=== PATIENT | female | born 1985 | race Caucasian/White ===

== ENCOUNTER → 2016-06-14 | Outpatient (CLI) | payer OTHER ==
[~2016-06-14] MED LIST: FLNCV PO
== END | disposition home or self-care (01) ==
LOC: C.PAPS 12:04
PROVIDERS: ATTEND Obstetrics & Gynecology
DX: Z12.4 Encounter for screening for malignant neoplasm of cervix (principal)

== ENCOUNTER → 2016-08-15 | Outpatient (CLI) | payer OTHER ==
--- NOTE | 2016-08-15 10:35 | DIAGNOSTIC IMAGING REPORT ---
ABDOMINAL ULTRASOUND, RIGHT UPPER QUADRANT HISTORY: RUQ EPIGASTRIC PAIN. COMPARISON: None. FINDINGS: Pancreas: The pancreas demonstrates a normal echotexture. Liver: Unremarkable. Gallbladder: No gallbladder wall thickening. No gallstones. CBD: 4 mm. Right kidney: No hydronephrosis. IMPRESSION: No significant abnormality identified within the right upper quadrant. Electronically signed by: Huy Rivas M.D. 08/15/2016 10:33 AM Dictated Date/Time: 08/15/2016 10:32 AM
--- NOTE | 2016-08-16 12:35 | CODING QUERY NO DIAGNOSIS ---
TREATMENT RENDERED WITHOUT A DIAGNOSIS To promote full compliance with coding requirements relating to patient care, physician participation is requested in all cases of roller mill tender uncertainty. Please assist us with providing a diagnosis/symptom for the test(s) below: A diagnosis/symptom was not documented on your Order. A valid diagnosis/symptom is required to bill all insurances. Please remember that we are unable to code a diagnosis of rule out, probable, possible, questionable, or suspected. Tests that require a diagnosis: DOS: 08/15/16 * RUQ ABDOMINAL ULTRASOUND DIAGNOSIS: Provider Signature: Date: Thank you [facility] Information Management Once completed, please kindly fax back to [phone] For questions please call [phone]
== END | disposition home or self-care (01) ==
LOC: C.ULTR 09:55
PROVIDERS: ATTEND Internal Medicine
DX: R10.11 Right upper quadrant pain (principal)

== ENCOUNTER 2023-07-15 07:23 | Inpatient (IN) ==
[2023-07-15] MEDS ORDERED: LIDOCAINE 1% LOCAL 20 ML VIAL INFIL PRN (08:28)
[2023-07-15] MEDS ORDERED: OXYTOCIN 30 UNITS/NSS 30 UNITS/500 ML BAG IV PRN ×2 (08:28→17:17)
[2023-07-15 08:55] LABS: Hematocrit (blood only) 36.1 % (37.0-47.0); Hemoglobin 11.8 g/dl (12.0-16.0); Mean Corpuscular Hemoglobin 25.8 pg (25.0-34.0); Mean Corpuscular Hgb Conc 32.7 g/dL (32.0-36.0); Mean Platelet Volume 12.2 fL (9.4-12.4); Platelet Count 147 K/uL (130-400); RDW Coefficient of Variation 16.5 % (11.5-14.5); RDW Standard Deviation 47.5 fL (36.4-46.3); Red Blood Count 4.57 M/uL (4.20-5.40); White Blood Count 9.61 K/ul (4.8-10.8)
[2023-07-15] MEDS: LACTATED RINGER'S 1,000 ML IV PRN (09:12)
[2023-07-15] MEDS: PENICILLIN GK 6 MU in DEXTROSE 5% 250 ML IV STA (09:12)
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
[2023-07-15] MEDS: OXYTOCIN 30 UNITS/NSS 30 UNITS/500 ML BAG IV PRN (09:20)
[2023-07-15] MEDS ORDERED: NALOXONE HCL 0.4 MG/1 ML VIAL/CARP IV PRN (12:42)
[2023-07-15] MEDS ORDERED: ROPIVACAINE 0.5% PF 5 MG/ML 20 ML VIAL EPI PRN (12:42)
[2023-07-15] MEDS ORDERED: fentANYL 2 MCG/ML BUPIVacaine 0.125%-NSS 100ML BAG EPI PRN (12:42)
[2023-07-15] MEDS ORDERED: NALOXONE HCL 1 MG in SODIUM CHLORIDE 0.9% 1,000 ML IV PRN (12:42)
[2023-07-15] MEDS ORDERED: BUPIVACAINE 0.25% PF 30 ML VIAL EPI PRN (12:42)
[2023-07-15] MEDS ORDERED: NALBUPHINE HCL 5 MG in SYRINGE 0 ML IV PRN (12:42)
[2023-07-15] MEDS ORDERED: ePHEDrine sulfate 50 MG/ML AMP IV PRN (12:42)
[2023-07-15] MEDS ORDERED: LIDOCAINE 2% MPF LOCAL 5 ML VIAL EPI PRN (12:42)
[2023-07-15] MEDS ORDERED: fentaNYL citrate PF 100 MCG/2 ML VIAL EPI PRN (12:42)
[2023-07-15] MEDS ORDERED: SODIUM CHLORIDE 0.9% PF INJ 10 ML VIAL EPI PRN (12:42)
[2023-07-15] MEDS ORDERED: diphenhydrAMINE 50 MG/ML VIAL IV PRN (12:42)
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
[2023-07-15] MEDS: fentANYL 2 MCG/ML BUPIVacaine 0.125%-NSS 100ML BAG ONE (13:14)
[2023-07-15] MEDS: LIDOCAINE 2%/EPINEPHRINE 1:200,000 20 ML PF ONE (13:14)
[2023-07-15] MEDS: PENICILLIN GK 3 MU in DEXTROSE 5% 100 ML IV PRN (13:32)
[2023-07-15] MEDS: fentaNYL citrate PF 100 MCG/2 ML VIAL ONE (15:20)
[2023-07-15] MEDS: BUPIVACAINE 0.25% PF 30 ML VIAL EPI STA (15:20)
[2023-07-15] MEDS: BUPIVACAINE 0.25% PF 30 ML VIAL ONE (15:20)
[2023-07-15] MEDS: SODIUM CHLORIDE 0.9% PF INJ 10 ML VIAL ONE (15:20)
[2023-07-15] MEDS: LIDOCAINE 2%/EPINEPHRINE 1:200,000 20 ML PF EPI STA (15:21)
[2023-07-15] MEDS: fentaNYL citrate PF 100 MCG/2 ML VIAL EPI STA (15:21)
[2023-07-15] MEDS: SODIUM CHLORIDE 0.9% PF INJ 10 ML VIAL EPI STA (15:21)
[2023-07-15] MEDS ORDERED: DIPHTHER/TETAN/PERTUS Vaccine (Tdap, Adol/Adult) 0.5mL IM ONE (17:17)
[2023-07-15] MEDS ORDERED: HYDROCORTISONE ACETATE 25 MG SUPP PR PRN (17:17)
[2023-07-15] MEDS ORDERED: oxyCODONE/ACETAMINOPHEN 5mg/325mg TAB PO PRN (17:17)
[2023-07-15] MEDS ORDERED: ACETAMINOPHEN 325 MG TAB PO PRN (17:17)
[2023-07-15] MEDS ORDERED: bisacodyL 10 MG SUPP PR PRN (17:17)
--- NOTE | 2023-07-15 17:23 | Delivery Summary ---
Vaginal Delivery Summary Date of Service July 15, 2023 Vaginal Delivery Summary and 1st Degree LAC Patient is a 3 para 2-0-0-1 female EDC 07/20/[birth year]23 who presents for induction of labor. Pitocin induction was begun per protocol. She received effective epidural analgesia and membranes were ruptured for thin meconium stained fluid. She progressed to full dilation with the urge to push. She pushed effectively through 2 contractions for delivery of a viable male infant. After the head was delivered the posterior arm presented and then delivered followed by the rest of the body. Loose nuchal cord was reduced after delivery. The was vigorous crying and moving all 4 limbs. He was placed on the mother's abdomen for further attention and drying. After 1 minute, the cord was clamped and cut. Cord blood was obtained and the placenta was then delivered intact with a three-vessel cord. A first-degree perineal laceration was repaired with 3-0 chromic in usual fashion. Several labial abrasions were not bleeding and therefore not repaired. bleeding was controlled with dilute Pitocin and fundal massage. QBL is 138 cc. Mother and infant were doing well after delivery. [facility] Vaginal Delivery Charge Delivery Type Details: and 1st Degree LAC
[2023-07-15] MEDS: ePHEDrine sulfate 50 MG/ML AMP ONE (17:49)
--- NOTE | 2023-07-15 17:55 | Anesthesia Procedure Note ---
Date of Service July 15, 2023 Anesthesia Post Epidural Note Vital Signs Vital Signs: Temp Pulse Resp BP Pulse Ox 36.9 C 64 18 125/61 96 07/15/23 15:30 07/15/23 17:48 07/15/23 17:33 07/15/23 17:48 07/15/23 17:18 Pain Intensity Bilateral Abdomen: Pain Intensity: 9 Notes Mental Status: alert / awake / arousable and participated in evaluation Nausea / Vomiting: adequately controlled Pain: adequately controlled Airway Patency, RR, SpO2: stable & adequate BP & HR: stable & adequate Hydration State: stable & adequate Neuraxial Anesthesia: was administered and sensory block is resolving Anesthetic Complications: no major complications apparent and Pt Satisfied with anesthetic care Epidural: Removed without complications and With tip intact
[2023-07-15] MEDS: BENZOCAINE 20% SPRY 85 APPLN/85 GM CAN EXT PRN (19:18)
[2023-07-15] MEDS: DOCUSATE SODIUM 100 MG CAP PO SCH (21:18)
[2023-07-15] MEDS: IBUPROFEN 600 MG TAB PO PRN (22:48)
--- NOTE | 2023-07-16 06:17 | Obstetrical Progress Note ---
Date of Service <Enrique Plaza MD - Last Filed: 07/16/23 07:49> July 16, 2023 Assessment & Plan <Enrique Plaza MD - Last Filed: 07/16/23 07:49> (1) (normal spontaneous vaginal delivery): Plan 29 yo L2, status post w/ 1st deg lac on 07/15/23. - Pt doing well clinically. Feels well today. Eating well, voiding well, ambulating well. Pain well controlled with PRN pain meds. - Routine care -- OOB, ambulation, diet progression as tolerated Vital Signs reviewed and WNL. (Tmax at 36.9) Hemoglobin Reviewed. 11.8 (07/15/23) pending (today). Blood Type: O+, GBS+, Rubella Immune. Encourage ambulation, monitor and control pain with Motrin PRN, resume regular diet, monitor lochia. Breast feeding encouraged. After discharge will have 6 week follow-up with Dr. Graham. Pt counselled on discharge instructions, in the event they choose to go home today. <Miranda Roberts MD, FACOG - Last Filed: 07/16/23 08:28> (1) (normal spontaneous vaginal delivery): Subjective <Enrique Plaza MD - Last Filed: 07/16/23 07:49> Ambulation: ambulating normally Voiding: no voiding problems Passing Gas:: Yes Diet Tolerance:: regular diet Lochia:: Large Feeding Type:: bottle feeding (w/ breast milk) Current Pain Level(1-10): 6 Constitutional: no fever, no chills, no fatigue or no weakness Eyes: no diplopia, no seeing flashes or no worsening vision Ear, Nose, Mouth, Throat: no nasal discharge, no nasal obstruction or no sore throat Respiratory: no cough, no chest congestion or no dyspnea Cardiovascular: no chest pain or no palpitations Gastrointestinal: no abdominal pain, no nausea, no vomiting, no constipation or no diarrhea/loose stools Genitourinary (female): no dysuria or no urinary frequency Integumentary: no rash or no urticaria Neurologic: no tingling, no numbness, no dizziness or no headache(s) Physical Exam <Enrique Plaza MD - Last Filed: 07/16/23 07:49> Constitutional WD/WN, vitals as above Respiratory normal respiratory effort, lungs clear to auscultation Cardiovascular RRR, no murmur, no edema Extremities: + pedal edema; no calf tenderness Gastrointestinal (Abdomen) Inspection/Auscultation: abdomen normal to inspection, normal bowel sounds and + significant pannus Percussion/Palpation: abdomen nontender and no hepatosplenomegaly Psychiatric A+Ox3, euthymic affect Results & Data <Enrique Plaza MD - Last Filed: 07/16/23 07:49> Vital Signs (Past 12 Hours) Vital Signs Temp Pulse Pulse Resp BP BP Pulse Ox 07/16/23 03:20 36.4 C L 61 16 131/84 97 07/15/23 23:30 36.5 C 63 16 128/78 96 07/15/23 20:30 36.3 C L 72 18 116/74 98 07/15/23 19:10 36.8 C 18 07/15/23 19:03 71 114/64 07/15/23 18:48 63 116/69 07/15/23 18:33 63 20 113/62 07/15/23 18:33 63 113/62 07/15/23 18:18 69 141/72 H O2 Del Method 07/16/23 03:20 Room Air 07/15/23 23:30 Room Air 07/15/23 20:30 Room Air 07/15/23 19:10 07/15/23 19:03 07/15/23 18:48 07/15/23 18:33 07/15/23 18:33 07/15/23 18:18 Supervising Physician <Miranda Robetrs MD, FACOG - Last Filed: 07/16/23 08:28> Co-Signing Physician Notes Resident Physician Supervision Note: I interviewed and examined the patient. Discussed with Dr. Plaza and agree with findings and plan as documented in the note. Any exceptions or clarifications are listed here: [None] Documented By: Miranda Roberts MD, FACOG
[2023-07-16 07:27] LABS: Hematocrit (blood only) 33.3 % (37.0-47.0); Hemoglobin 10.7 g/dl (12.0-16.0); Mean Corpuscular Hemoglobin 25.7 pg (25.0-34.0); Mean Corpuscular Hgb Conc 32.1 g/dL (32.0-36.0); Mean Platelet Volume 12.4 fL (9.4-12.4); Platelet Count 141 K/uL (130-400); RDW Coefficient of Variation 16.6 % (11.5-14.5); RDW Standard Deviation 48.3 fL (36.4-46.3); Red Blood Count 4.16 M/uL (4.20-5.40); White Blood Count 9.22 K/ul (4.8-10.8)
[2023-07-16] MEDS: PRENATAL VITAMIN 1 TAB PO SCH (08:26)
[2023-07-16 21:28] VITALS: RESP 18
[2023-07-16] MEDS: bisacodyL 5 MG TABEC PO SCH (21:29)
--- NOTE | 2023-07-17 06:09 | Obstetrical Progress Note ---
Date of Service <Enrique Plaza MD - Last Filed: 07/17/23 07:41> July 17, 2023 Assessment & Plan <Enrique Plaza MD - Last Filed: 07/17/23 07:41> (1) (normal spontaneous vaginal delivery): Plan 29 yo L2, status post w/ 1st deg lac on 07/15/23. - Pt doing well clinically. Feels well today. Eating well, voiding well, ambulating well. Pain well controlled with PRN pain meds. - Routine care -- OOB, ambulation, diet progression as tolerated Vital Signs reviewed and WNL. (Tmax at 36.9) Hemoglobin Reviewed. 11.8 (07/15/23), 9.8 (yesterday). Blood Type: O+, GBS+, Rubella Immune. Encourage ambulation, monitor and control pain with Motrin PRN, resume regular diet, monitor lochia. Breast feeding encouraged. After discharge will have 6 week follow-up with Dr. Graham. Pt counselled on discharge instructions, in the event they choose to go home today. <Marilyn Degroot DO - Last Filed: 07/17/23 07:55> (1) (normal spontaneous vaginal delivery): Subjective <Enrique Plaza MD - Last Filed: 07/17/23 07:41> Ambulation: ambulating normally Voiding: no voiding problems Passing Gas:: Yes Diet Tolerance:: regular diet Lochia:: Small Feeding Type:: breast feeding Current Pain Level(1-10): 4 (left abdominal pain beneath ribcage, feels like pulled muscle) Constitutional: no fever, no chills, no fatigue or no weakness Eyes: no diplopia, no seeing flashes or no worsening vision Ear, Nose, Mouth, Throat: no nasal discharge, no nasal obstruction or no sore throat Respiratory: no cough, no chest congestion or no dyspnea Cardiovascular: no chest pain or no palpitations Gastrointestinal: no abdominal pain, no nausea, no vomiting, no constipation or no diarrhea/loose stools Genitourinary (female): no dysuria or no urinary frequency Integumentary: no rash or no urticaria Neurologic: no tingling, no numbness, no dizziness or no headache(s) Physical Exam <Enrique Plaza MD - Last Filed: 07/17/23 07:41> Constitutional WD/WN, vitals as above Respiratory normal respiratory effort, lungs clear to auscultation Cardiovascular RRR, no murmur, no edema Extremities: + pedal edema; no calf tenderness Gastrointestinal (Abdomen) Inspection/Auscultation: abdomen normal to inspection, normal bowel sounds and + significant pannus Percussion/Palpation: abdomen nontender and no hepatosplenomegaly Psychiatric A+Ox3, euthymic affect Results & Data <Enrique Plaza MD - Last Filed: 07/17/23 07:41> Vital Signs (Past 12 Hours) Vital Signs Temp Pulse Resp BP Pulse Ox O2 Del Method 07/17/23 00:00 36.5 C 77 18 124/81 Room Air 07/16/23 19:55 Room Air 07/16/23 19:55 36.7 C 93 H 18 126/85 97 Room Air Supervising Physician <Marilyn Degroot DO - Last Filed: 07/17/23 07:55> Co-Signing Physician Notes Resident Physician Supervision Note: I was present with Dr. Plaza during the history and exam. I discussed the case with the resident and agree with the findings and plan as documented in the note. Any exceptions or clarifications are listed here: PPD#2 doing well. DC home. Instructions reviewed. Followup in office 6w PP. Documented By: Marilyn Degroot DO
[2023-07-17 06:31] LABS: Hematocrit (blood only) 30.5 % (37.0-47.0); Hemoglobin 9.8 g/dl (12.0-16.0)
[2023-07-17 09:33] VITALS: BP 123/82; PULSE 89; TEMP 98.8; O2SAT 98
== END 2023-07-17 11:10 | disposition home or self-care (01) | DRG 807 ==
LOC: 4S1 07:23 → 4E2 20:00
DX: Z3A.39 39 weeks gestation of pregnancy; Z79.899 Other long term (current) drug therapy; Z88.7 Allergy status to serum and vaccine; Z86.16 Personal history of COVID-19; O09.893 Supervision of other high risk pregnancies, third trimester; O70.0 First degree perineal laceration during delivery; O77.0 Labor and delivery complicated by meconium in amniotic fluid; O24.429 Gestational diabetes mellitus in childbirth, unspecified control; Z37.0 Single live birth; O69.81X0 Labor and delivery complicated by cord around neck, without compression, not applicable or unspecified; Z88.2 Allergy status to sulfonamides; Z83.3 Family history of diabetes mellitus; Z91.018 Allergy to other foods

== ENCOUNTER 2024-12-31 07:41 | Inpatient (IN) ==
[2024-12-31] MEDS ORDERED: LIDOCAINE 1% LOCAL 20 ML VIAL INFIL PRN (08:59)
[2024-12-31] MEDS ORDERED: CALCIUM CARBONATE 500 MG CHEWABLE TAB PO PRN (08:59)
[2024-12-31] MEDS ORDERED: ACETAMINOPHEN 325 MG TAB PO PRN (08:59)
[2024-12-31] MEDS: LACTATED RINGER'S 1,000 ML IV PRN (09:09)
[2024-12-31] MEDS: OXYTOCIN 30 UNITS/NSS 30 UNITS/500 ML BAG IV PRN ×2 (09:10→16:10)
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
[2024-12-31 09:55] LABS: Hematocrit (blood only) 37.3 % (37.0-47.0); Hemoglobin 11.9 g/dl (12.0-16.0); Mean Corpuscular Hemoglobin 25.1 pg (25.0-34.0); Mean Corpuscular Volume 78.5 fL (80.0-100.0); Platelet Count 130 K/uL (130-400); RDW Standard Deviation 44.9 fL (36.4-46.3); Red Blood Count 4.75 M/uL (4.20-5.40); White Blood Count 9.20 K/ul (4.8-10.8)
[2024-12-31] MEDS ORDERED: diphenhydrAMINE 50 MG/ML VIAL IV PRN (12:40)
[2024-12-31] MEDS ORDERED: fentANYL 2 MCG/ML BUPIVacaine 0.125%-NSS 100ML BAG EPI PRN (12:40)
[2024-12-31] MEDS ORDERED: NALBUPHINE HCL INJ 10 MG/ML AMP IV PRN (12:40)
[2024-12-31] MEDS ORDERED: NALOXONE HCL 0.4 MG/1 ML VIAL/CARP IV PRN (12:40)
[2024-12-31] MEDS ORDERED: SODIUM CHLORIDE 0.9% PF INJ 10 ML VIAL EPI PRN (12:40)
[2024-12-31] MEDS ORDERED: LIDOCAINE 2% MPF LOCAL 5 ML VIAL EPI PRN (12:40)
[2024-12-31] MEDS ORDERED: BUPIVACAINE 0.25% PF 30 ML VIAL EPI PRN (12:40)
[2024-12-31] MEDS ORDERED: ONDANSETRON INJ 2 MG/ML 2 ML VIAL IV PRN (12:40)
[2024-12-31] MEDS ORDERED: ROPIVACAINE 0.5% PF 5 MG/ML 20 ML VIAL EPI PRN (12:40)
[2024-12-31] MEDS ORDERED: NALOXONE HCL 1 MG in SODIUM CHLORIDE 0.9% 1,000 ML IV PRN (12:40)
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
[2024-12-31] MEDS: BUPIVACAINE 0.25% PF 30 ML VIAL ONE (13:11)
[2024-12-31] MEDS: LIDOCAINE 2%/EPINEPHRINE 1:200,000 20 ML PF ONE (13:11)
[2024-12-31] MEDS: fentANYL 2 MCG/ML BUPIVacaine 0.125%-NSS 100ML BAG ONE (13:15)
[2024-12-31] MEDS: SODIUM CHLORIDE 0.9% PF INJ 10 ML VIAL ONE (13:22)
[2024-12-31] MEDS: BUPIVACAINE 0.25% PF 30 ML VIAL EPI STA (13:23)
[2024-12-31] MEDS: LIDOCAINE 2%/EPINEPHRINE 1:200,000 20 ML PF EPI STA (13:23)
[2024-12-31] MEDS: SODIUM CHLORIDE 0.9% PF INJ 10 ML VIAL EPI STA (13:23)
--- NOTE | 2024-12-31 15:53 | Delivery Summary ---
Vaginal Delivery Summary Date of Service December 31, 2024 Vaginal Delivery Summary and 2nd Degree LAC Patient induced electively after 39 weeks she was given Pitocin and requested epidural her cervix was 4 cm at this started after epidural she was membranes were ruptured as she was close to 5 cm later that afternoon she was fully dilated and pushing over 1 contraction delivered a baby in occiput anterior position there is a loose nuchal cord passed over the head gentle traction on the baby no excessive force live vigorous female after delivery of the baby cord clamped and cut cord blood obtained placenta removed with traction IV Pitocin started uterine tone improved there was a second-degree tear repaired with 3-0 Vicryl sponge and instrument counts correct QBL 150 mL [facility] Vaginal Delivery Charge Delivery Type Details: and 2nd Degree LAC
[2024-12-31] MEDS ORDERED: OXYTOCIN 30 UNITS/NSS 30 UNITS/500 ML BAG IV PRN (16:31)
[2024-12-31] MEDS ORDERED: BENZOCAINE 20% SPRY 85 APPLN/85 GM CAN EXT PRN (16:31)
[2024-12-31] MEDS ORDERED: HYDROCORTISONE ACETATE 25 MG SUPP PR PRN (16:31)
--- NOTE | 2024-12-31 17:59 | Anesthesia Procedure Note ---
Date of Service December 31, 2024 Anesthesia Post Epidural Note Vital Signs Vital Signs: Temp Pulse Resp BP Pulse Ox O2 Del Method 36.3 C L 74 18 139/78 99 Room Air 12/31/24 16:50 12/31/24 17:42 12/31/24 13:45 12/31/24 17:42 12/31/24 15:36 12/31/24 08:00 Pain Intensity Abdomen: Pain Intensity: 0 Notes Mental Status: alert / awake / arousable and participated in evaluation Nausea / Vomiting: adequately controlled Pain: adequately controlled Airway Patency, RR, SpO2: stable & adequate BP & HR: stable & adequate Hydration State: stable & adequate Neuraxial Anesthesia: was administered and sensory block is resolving Anesthetic Complications: no major complications apparent Epidural: Removed without complications and With tip intact
[2024-12-31] MEDS: IBUPROFEN 600 MG TAB PO PRN (19:48)
[2024-12-31] MEDS: DOCUSATE SODIUM 100 MG CAP PO SCH (21:23)
[2025-01-01 04:10] VITALS: O2SAT 96
[2025-01-01] MEDS: ACETAMINOPHEN 325 MG TAB PO PRN (04:10)
--- NOTE | 2025-01-01 07:14 | Obstetrical Progress Note ---
Date of Service <Ingrid Weeks DO - Last Filed: 01/01/25 08:46> January 01, 2025 Assessment & Plan <Ignrid Weeks DO - Last Filed: 01/01/25 08:46> (1) care following vaginal delivery: Plan 39 yo post- day 1 s/p . Feels well today. Vital signs stable Continue post- care Encourage ambulation and Pain controlled with ibuprofen Hgb stable Discharge home today, follow up with Dr. Espinosa in 6 weeks. <Leobardo Espinosa MD, FACOG - Last Filed: 01/05/25 08:48> (1) care following vaginal delivery: Subjective <Ingrid Weeks DO - Last Filed: 01/01/25 08:46> 39 yo post- day 1 s/p . Ambulation: ambulating normally Voiding: no voiding problems Passing Gas:: Yes Passing Stool:: No Diet Tolerance:: regular diet Lochia:: Small Feeding Type:: breast feeding Current Pain Level: 0/10 Resting comfortably this AM in NAD. Denies [place], CP, SOB, N/V/D, LE pain/swelling. Review of Systems All systems reviewed & are unremarkable except as noted in HPI & below Physical Exam <Ingrid Weeks DO - Last Filed: 01/01/25 08:46> General: patient resting comfortably, NAD, non-toxic in appearance, AA&O x 4, answers questions appropriately. Skin: warm, dry, intact HEENT: NC/AT, anicteric sclera, conjunctiva without injection, moist mucus membranes. Heart: +S1/S2, regular, no m/r/g Lungs: equal air entry bilaterally, no rales/rhonchi/wheezes Abd: +BS, soft, NT/ND, uterine fundus firm at umbilicus Ext: warm, no clubbing/cyanosis or edema, Cristhian's neg. Neuro: nonfocal, patient AA&O x 4, speech intact, no facial droop, moving all extremities on command. Results & Data <Ingrid Weeks - Last Filed: 01/01/25 08:46> Vital Signs (Past 12 Hours) Vital Signs Temp Pulse Resp BP Pulse Ox O2 Del Method 01/01/25 04:00 36.5 C 64 16 123/73 96 Room Air 12/31/24 23:45 36.7 C 65 16 118/68 98 Room Air 12/31/24 20:45 36.7 C 64 16 129/82 97 Room Air Laboratory Results OB Labs: Blood Type O Positive 06/07/24 Antibody Screen NEGATIVE 06/07/24 Hgb 11.7 g/dl (12.0-16.0) L 10/25/24 Hct 35.5 % (37.0-47.0) L 10/25/24 MCV 83.2 fL (80.0-100.0) 06/07/24 Plt Count 237 K/uL (130-400) 06/07/24 Rubella IgG Antibody Equivocal (Immune) L 06/07/24 RPR Nonreactive (Nonreactive) 12/10/22 Treponema pallidum Ab Negative (Negative) 10/25/24 Hep Bs Antigen Negative (Negative) 06/07/24 Hep Bs Antigen NON-REACTIVE (NON-REACTIVE) 12/10/22 Hepatitis C Antibody Negative (Negative) 06/07/24 Hepatitis C Ab (EIA) NON-REACTIVE (NON-REACTIVE) 12/10/22 HIV 1&2 Ab/P24 Ag 4thGn Negative (Negative) 06/07/24 HIV (1&2) Ag & Ab Conf NON-REACTIVE (NON-REACTIVE) 12/10/22 Glucose 1 Hr 50 gm 199 mg/dl (70-130) H 02/04/23 Maternal Serum AFP 55.9 ng/mL 08/19/24 OB Optional Labs: Chlamydia trachomatis RNA Not Detected (NotDetected) 06/07/24 Neisseria gonorrhoeae RNA Not Detected (NotDetected) 06/07/24 Thyroid Stimulating Hormone (TSH) 1.665 uIu/ml (0.300-4.500) 09/07/21 Alpha Fetoprotein Triple Screen SEE NOTE 08/19/24 Supervising Physician <Leobardo Espinosa MD, FACOG - Last Filed: 01/05/25 08:48> Co-Signing Physician Notes Resident Physician Supervision Note: I was present with [Name of resident] during the history and exam. I discussed the case with the resident and agree with the findings and plan as documented in the note. Any exceptions or clarifications are listed here: [None] Documented By: Leobardo Espinosa MD, FACOG Resident Activity Tracking <Ingrid Weeks DO - Last Filed: 01/01/25 08:46> Resident Involvement: Resident Care Provided Care Provided: OB Delivery
[2025-01-01] MEDS: DIPHTHER/TETAN/PERTUS Vaccine (Tdap, Adol/Adult) 0.5mL IM ONE (07:40)
[2025-01-01 07:55] VITALS: RESP 18
[2025-01-01 07:56] LABS: Hematocrit (blood only) 32.1 % (37.0-47.0); Hemoglobin 10.1 g/dl (12.0-16.0); Mean Corpuscular Hemoglobin 25.0 pg (25.0-34.0); Mean Corpuscular Volume 79.5 fL (80.0-100.0); Platelet Count 125 K/uL (130-400); RDW Standard Deviation 46.1 fL (36.4-46.3); Red Blood Count 4.04 M/uL (4.20-5.40); White Blood Count 8.93 K/ul (4.8-10.8)
[2025-01-01] MEDS: PRENATAL VITAMIN 1 TAB PO SCH (08:20)
[2025-01-01 12:21] VITALS: BP 135/84; PULSE 77; TEMP 98.4
== END 2025-01-01 18:50 | disposition home or self-care (01) | DRG 807 ==
LOC: 4S1 07:41 → 4E2 20:41
DX: Z3A.39 39 weeks gestation of pregnancy; Z86.16 Personal history of COVID-19; O70.1 Second degree perineal laceration during delivery; O24.420 Gestational diabetes mellitus in childbirth, diet controlled; Z37.0 Single live birth